=== PATIENT | female | born 2005 | race Caucasian/White ===

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

== ENCOUNTER 2024-11-29 16:00 | Outpatient (CLI) | payer SELFPAY ==
[2024-11-29 16:15] VITALS: BP 113/67; PULSE 83
[2024-11-29 16:40] VITALS: BMI 32.7
--- NOTE | 2024-11-29 20:11 | OB.TRI.HP_ITS ---
HPI - General HPI Narrative RIGOBERTO MENJIVAR, is a 19 F who presents at 33 weeks. Was seen in office for NST and tachycardia. To L&D for further monitoring. PFSH PFS Medical History (Updated 11/29/24 @ 20:12 by Nancy Horne CNM) ADHD Allergy/AdvReac Type Severity Reaction Status Date / Time latex AdvReac Intermediate Rash Verified 11/29/24 16:42 Social History current occupation: 10th [employer] in [place] Smoking Status: Never smoker alcohol intake: never NST FHR Rate Baby A Baseline: 150 Variability:: Moderate Accelerations:: 15 x 15 Decelerations:: Variable NST Reactive:: Yes Uterine Activity:: none Assessment & Plan (1) tachycardia: (2) Equivocal non-stress test: PLAN: Plan 1) NST reactive 2) D/C home
== END 2024-11-29 17:30 | disposition home or self-care (01) ==
LOC: WPOUT 16:07 → WP 16:07
PROVIDERS: PCP Pediatrics; Referring Provider Advanced Practice Midwife; Visit Provider Advanced Practice Midwife
DX: O36.8330 Maternal care for abnormalities of the fetal heart rate or rhythm, third trimester, not applicable or unspecified (principal); O99.343 Other mental disorders complicating pregnancy, third trimester; F90.9 Attention-deficit hyperactivity disorder, unspecified type; Z3A.33 33 weeks gestation of pregnancy
CPT/HCPCS: 59050; 99221; G0378

== ENCOUNTER 2025-01-04 14:45 | Inpatient (IN) | payer BC, SELFPAY ==
[2025-01-04] VITALS (11 sets, daily range): BP systolic 126–134; BP diastolic 75–89; PULSE 75–123; RESP 16; TEMP 36.4–36.8; O2SAT 96–97; BMI 34.7
[2025-01-04 14:36] LABS: ROM Internal Control Test YES-OK TO RESULT pt. (Internal QC)
[2025-01-04 14:40] LABS: ROM Patient Test POSITIVE (Negative); Record Kit Lot#, ROM+ K3358
[2025-01-04 15:45] LABS: Hematocrit 32.6 % (37-47); Hemoglobin 10.6 g/dL (12.0-15.0); Immature Granulocytes Count 0.060 X10^3/uL (0.0-0.0); Mean Corp Hgb Conc 32.5 g/dL (32-36); Mean Corpuscular Volume 76.0 fL (81-99); Mean Platelet Vol. 9.3 fl (6.2-12.0); NRBC Flagged by Analyzer 0 % (0-5); Platelet Count 321 K/mm3 (150-450); RBC Distribution Width CV 14.8 % (11.6-14.6); RBC Distribution Width SD 40.1 fl (35.1-43.9); Red Blood Count 4.29 M/mm3 (4.2-5.4); White Blood Count 11.4 K/mm3 (4.4-11.0)
[2025-01-04 16:29] LABS: Syphilis Antibodies Nonreactive (Nonreactive)
[2025-01-04 17:18] LABS: Barbiturate Urine NEGATIVE (< 200 ng/mL); Benzodiazepine Urine NEGATIVE (< 200 ng/mL); PCP Urine NEGATIVE (< 25 ng/mL); THC Urine NEGATIVE (< 50 ng/mL)
[2025-01-04] MEDS: Oxytocin 15 Units/NS 250ml 15 UNITS/250 ML IV.SOLN 2 UNITS IV (20:31)
[2025-01-04] MEDS: Lactated Ringers 1,000 ML 50 ML IV (20:31)
[2025-01-05] VITALS (103 sets, daily range): BP systolic 105–149; BP diastolic 56–104; PULSE 65–172; RESP 16; TEMP 36.4–37.6; O2SAT 79–100
[2025-01-05] MEDS: Lactated Ringers 1,000 ML 999 ML IV (00:55)
[2025-01-05] MEDS: fentaNYL-bupivacaine (epidural) 100 ML BAG EPIDURAL ×2 (01:56→06:25)
[2025-01-05] MEDS: Lactated Ringers 1,000 ML 200 ML IV (06:25)
[2025-01-05] MEDS: Oxytocin 15 Units/NS 250ml 15 UNITS/250 ML IV.SOLN 334 UNITS IV (08:09)
[2025-01-05] MEDS: Oxytocin 15 Units/NS 250ml 15 UNITS/250 ML IV.SOLN 83 UNITS IV (08:45)
[2025-01-05] MEDS: Cefazolin 2 GM in 0.9% Normal Saline (100mL Bag) 100 ML IV ×3 (09:37→21:54)
[2025-01-05] MEDS: 0.9% Saline Lock 10 ML Syringe IV ×2 (12:44→15:06)
[2025-01-05] MEDS: Lactated Ringers 1,000 ML 500 ML IV (12:50)
[2025-01-05] MEDS: Lactated Ringers 1,000 ML 50 ML IV (21:54)
[2025-01-06] VITALS (7 sets, daily range): BP systolic 114–121; BP diastolic 58–75; PULSE 83–92; RESP 16–18; TEMP 36.2–36.8; O2SAT 85–99
[2025-01-06] MEDS: Cefazolin 2 GM in 0.9% Normal Saline (100mL Bag) 100 ML IV (05:58)
[2025-01-06] MEDS: Prenatal Vits Tablet 1 TABLET PO (10:48)
[2025-01-06] MEDS: SELF ADMINISTRATION OF MEDS 1 EACH NOTE (10:49)
[2025-01-06] MEDS: MEASLES,MUMPS,RUBELLA VACC/PF 0.5 ML SC (15:05)
== END 2025-01-06 18:40 | disposition home or self-care (01) | DRG 807 ==
LOC: WPOUT 14:59 → WP 14:59
PROVIDERS: Admitting Provider Obstetrics & Gynecology; Referring Provider Obstetrics & Gynecology; Visit Provider Obstetrics & Gynecology
DX: O42.02 Full-term premature rupture of membranes, onset of labor within 24 hours of rupture (principal); Z37.0 Single live birth; O99.344 Other mental disorders complicating childbirth; F32.A Depression, unspecified; F41.9 Anxiety disorder, unspecified; O70.0 First degree perineal laceration during delivery; O76 Abnormality in fetal heart rate and rhythm complicating labor and delivery; Z3A.38 38 weeks gestation of pregnancy
CPT/HCPCS: 59025; 59050; 80307; 84112; 85025; 86780; 86850; 86900; 86901; 87491; 87591; 88307; 99221; A4216; G0378; J2405